=== PATIENT | male | born 1960 | race Caucasian/White ===

== ENCOUNTER 2019-02-04 09:30 | Outpatient (CLI) | payer BC ==
[~2019-02-04] VITALS: Ht 170.2 cm; Wt 84.4 kg
[2019-02-04] MEDS ORDERED: RANI150T46 PO (09:37)
[2019-02-04] MEDS ORDERED: PRAV20TA3 PO (09:37)
== END 2019-02-04 09:38 | disposition home or self-care (01) ==
LOC: PREOP 09:30
PROVIDERS: ATTEND Internal Medicine
DX: Z01.818 Encounter for other preprocedural examination (principal)

== ENCOUNTER 2019-02-07 08:28 | Day surgery (SDC) | payer BC, OTHER ==
--- NOTE | 2019-01-31 13:35 | HISTORY AND PHYSICAL ---
DATE OF SERVICE: PANENDOSCOPY HISTORY AND PHYSICAL DATE OF ADMISSION: 02/07/2019. HISTORY OF PRESENT ILLNESS: The patient is a 59-year-old white male referred by Dr. Chatman for screening colonoscopy and diagnostic EGD. He reports he has been having intermittent dysphagia to solids for the past several months. It probably dates back several years, but worse over the past several months. He reports whenever he swallows, he develops rather sharp right upper quadrant abdominal pain, during the act of swallowing, it subsides usually within a few seconds to a minute. This happens with solids or liquids. He will have occasional dysphagia to solids. He did undergo EGD evaluation for Dr. Almeida in 2009. He reported symptoms were better on Nexium. His electronic medical record was reviewed and it was noted that there were increased eosinophils on his esophageal biopsy raising the possibility of eosinophilic esophagitis. He denies weight loss. Denies abdominal pain elsewhere and has noted no melena or bright red blood per rectum. MEDICATIONS ON ADMISSION: Zantac 150 mg b.i.d., pravastatin 20 mg daily and he takes beet juice extract one time daily. PAST MEDICAL HISTORY: Significant for hyperlipidemia with no known history for vascular disease. FAMILY HISTORY: Family history is pertinent for colon cancer. His father was diagnosed at the age of 62. He several years later, felt to be secondary to emphysema. Mother is living, has hyperlipidemia and dementia and in her late 70s. 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 He also chewed tobacco, but quit in 2008 and he also uses chewing tobacco, but quit in 2008. REVIEW OF SYSTEMS: CONSTITUTIONAL: The patient denies chills, fever or fatigue. CARDIOVASCULAR: The patient denies chest discomfort, syncope, presyncope or dyspnea on exertion. RESPIRATORY: The patient denies cough or wheezing and denies orthopnea, PND or pedal edema. SURGICAL HISTORY: Pertinent for an appendectomy in 1999 and a tonsillectomy in 1967. PHYSICAL EXAMINATION: GENERAL: Reveals a well-appearing white male in no acute distress. VITAL SIGNS: Blood pressure 140/86, weight 186.2 pounds, height 5 feet 8 inches tall. HEENT: Oral cavity reveals Mallampati class 2 pharyngeal configuration without exudate or erythema. NECK: Revealed no JVD, adenopathy or bruits. CHEST: Clear to auscultation. CARDIOVASCULAR: Revealed a regular rate and rhythm without murmur, S3 or S4. ABDOMEN: Soft, supple without mass, organomegaly or tenderness. EXTREMITIES: Reveal no cyanosis, clubbing or edema. ASSESSMENT: The patient was set up for screening colonoscopy, deemed to be of higher than average risk considering his father was diagnosed with colon cancer at the age of 62. He is also being set up for EGD for diagnostic purposes due to dysphagia. We will be repeating esophageal biopsies looking for eosinophils as based on my review of his previous histopathology report, eosinophilic esophagitis is in the differential diagnosis. I thank you for the referral of this pleasant gentleman. Job ID: [id number] DocumentID: [id number] Dictated Date: 01/31/2019 13:00:21 Supervisor [employer] Date: 01/31/2019 13:35:00 Dictated By: KARLEY TRINIDAD MD [facility]
[~2019-02-07] VITALS: Ht 170.2 cm; Wt 84.4 kg
[~2019-02-07 08:28] MED LIST: D5 LR IV SOLUTION 1,000 ML IV ONE; PRAV20TA3 PO; RANI150T46 PO
[2019-02-07] MEDS ORDERED: D5 LR IV SOLUTION 1,000 ML IV STA (08:59)
[2019-02-07 09:00] VITALS: BP 144/91
[2019-02-07] MEDS ORDERED: MIDAZOLAM 2 MG/2 ML (VERSED) VIAL IVP ONE (09:00)
[2019-02-07] MEDS ORDERED: LIDOCAINE JELLY 2% 6 ML SYRINGE MM PRN (09:00)
[2019-02-07] MEDS ORDERED: HURRICAINE EXT TUBE (BENZOCAINE) XX PRN (09:00)
[2019-02-07] MEDS ORDERED: fentaNYL INJECTION 100 MCG/2 ML AMP IVP ONE (09:00)
--- NOTE | 2019-02-07 09:11 | Pre-Op Note & Conscious Sedat ---
Pre-Operative Progress Note H&P Reviewed The H&P was reviewed, patient examined and no changes noted. Date H&P Reviewed: Feb 07, 2019 Time H&P Reviewed: 09:11 Conscious Sedation Pre-Proced ASA Score 2 For ASA 3 and 4: Consider anesthesia and medical clearance. Also, for patients with a history of failed moderate sedation consider anesthesia. Airway Lungs Heart ASA score ASA 1: a normal healthy patient ASA 2: a patient with a mild systemic disease (mid diabetes, controlled hypertension, obesity ASA 3: a patient with a severe systemic disease that limits activity (angina, COPD, prior Myocardial infarction) ASA 4: a patient with an incapacitating disease that is a constant threat to life (CHF, renal failure) ASA 5: a moribund patient not expected to survive 24 hrs. (ruptured aneurysm) ASA 6: a declared brain- patient whose organs are being harvested. For emergent operations, add the letter E after the classification Mallampati Classification Grade 2 Sedation Plan Analgesia, Amnesia, Plan communicated to team members, Discussed options with patient/fam, Discussed risks with patient/fam The patient is an appropriate candidate to undergo the planned procedure, sedation, and anesthesia. The patient immediately re-assessed prior to indication. KARLEY TRINIDAD MD Feb 07, 2019 09:11
[2019-02-07] MEDS ORDERED: LIDOCAINE JELLY 2% 6 ML SYRINGE ONE (09:45)
[2019-02-07] MEDS ORDERED: fentaNYL INJECTION 100 MCG/2 ML AMP ONE (09:46)
[2019-02-07] MEDS ORDERED: MIDAZOLAM 2 MG/2 ML (VERSED) VIAL ONE ×2 (09:46)
[2019-02-07 10:55] VITALS: BP 131/85
[2019-02-07 11:25] VITALS: BP 155/92
[2019-02-07 11:45] VITALS: BP 155/92
--- NOTE | 2019-02-07 15:18 | OPERATIVE REPORT ---
DATE OF SERVICE: [facility] SUMMARY Colonoscopy is done for screening purposes and EGD was done for diagnostic purposes. History of right upper quadrant pain and dysphagia. The patient was placed in left lateral decubitus position. Prior to undergoing colonoscopy, digital rectal evaluation was performed. Anal sphincter tone was normal and the perianal reflexes were intact. Prostate was unremarkable to digital inspection. No other abnormalities are noted on additional inspection of the anal canal or distal rectal vault. The colonoscope was then inserted into the rectum and under direct visualization, advanced to the cecum. The cecum was identified by identification of the ileocecal valve, cecal strap and appendiceal orifice. Photographic documentation was obtained. Careful inspection was made as the colonoscope was withdrawn. The quality of the prep was good. FINDINGS: There is no evidence for internal or external hemorrhoids. A diminutive hyperplastic appearing polyp was noted at the hepatic flexure, was biopsied and ablated and submitted for histopathology. The sigmoid colon, descending colon, splenic flexure, transverse colon, ascending colon and cecum were unremarkable. ASSESSMENT: One diminutive polyp was removed from the hepatic flexure. This was an otherwise normal colonoscopy to the cecum. I would advocate consideration for repeat screening colonoscopy in 5 years considering family history for colon cancer. We then proceeded with EGD evaluation. The endoscope was inserted in the oral cavity and under direct visualization, the esophagus was intubated. The endoscope was passed down the esophagus into the stomach and second portion of the duodenum. A careful inspection was made as the endoscope was withdrawn. The patient tolerated the procedure well. FINDINGS: The posterior pharynx, arytenoid aperture, true and false vocal folds were unremarkable with visual inspection as well as the epiglottis. Proximal and mid esophagus were normal. A small hiatal hernia was present. Erythema is noted at the Z line without evidence for ulceration. A biopsy was obtained from the GE junction and another biopsy was obtained from the distal esophagus considering dysphagia without evidence for mechanical obstruction. This was fully evaluated for underlying eosinophilic esophagitis. The cardia, fundus, antrum, pylorus, pyloric channel, duodenal bulb and second portion of duodenum were unremarkable on visual inspection. ASSESSMENT: A small hiatal hernia is present with erythema noted, but without evidence for erosive esophagitis. On review, this patient's EGD performed by Dr. Almeida several years ago was noted that there was a mild increase in eosinophils on the esophageal biopsy raising the possibility of eosinophilic esophagitis. I repeated biopsy of the distal esophagus as well as the GE junction. For now, we will have the patient continue b.i.d. Zantac; however, if there is again noted increased number of eosinophils, would advocate switching to proton pump inhibitor therapy and if dysphagia were progressing, would advocate trial of gluten free diet and lactose free diet. Thank you for the referral of this pleasant gentleman. Job ID: [id number] DocumentID: [id number] Dictated Date: 02/07/2019 11:10:54 Quality Coordinator Date: 02/07/2019 15:16:58 Dictated By: KARLEY TRINIDAD MD
--- OUTSIDE RECORDS SUMMARY | 2019-02-07 18:51 | XMS REPORT | CCD ---
Author Author Ayde Chatman MD, [facility] Address [address] [place] [address] Phone Care Team Providers Care Lead Military Analyst Name Role Phone PP Unavailable CCM Unavailable Summary Purpose Interface Exchange Insurance Providers Payer name Policy type / Coverage type Covered constitution party ID Effective Begin Date Effective End Date [employer]ign[employer] health and Life Insurance Commercial Insurance [id number] Unknown Unknown Family history Father Diagnosis Age At Onset Emphysema Unknown Colon cancer Unknown Mother Diagnosis Age At Onset Dementia Unknown Hyperlipidemia Unknown Social History Social History Element Codes Description Effective Dates Marital status Unknown Kavita 01/16/2019 Number of children Unknown 4 01/16/2019 Employment Unknown 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 01/16/[address]: 5328987 Quit less than 10 years ago quit chewing 200801/16/2019 Alcohol history Unknown occasionally drinks alcohol 1 beer 01/16/2019 Allergies, Adverse Reactions, Alerts Substance Reaction Codes Entered Date Inactivated Date Status * NO KNOWN DRUG ALLERGIES Unknown 01/16/2019 No Inactive Date Active Past Medical History Illness Codes Condition Status Onset Date Resolved Date Elevated blood-pressure reading, without diagnosis of hypertension ICD-9: 796.2 ICD-10: R03.0 Active 01/16/2019 Unknown Encounter for general adult medical examination with abnormal findings ICD-9: V70.0 ICD-10: Z00.01 Active 01/16/2019 Unknown Encounter for general adult medical examination without abnormal findings ICD-9: V70.0 ICD-10: Z00.00 Active 01/16/2019 Unknown Gastro-esophageal reflux disease without esophagitis ICD-9: 530.81 ICD-10: K21.9 Active 01/16/2019 Unknown Problems Condition Codes Effective Dates Condition Status Elevated blood-pressure reading, without diagnosis of hypertension ICD-9: 796.2 ICD-10: R03.0 01/16/2019 Active Encounter for general adult medical examination with abnormal findings ICD-9: V70.0 ICD-10: Z00.01 01/16/2019 Active Encounter for general adult medical examination without abnormal findings ICD-9: V70.0 ICD-10: Z00.00 01/16/2019 Active Gastro-esophageal reflux disease without esophagitis ICD-9: 530.81 ICD-10: K21.9 01/16/2019 Active Medications Medication Codes Instructions Start Date Stop Date Status Fill Instructions pravastatin 20 mg tablet RxNorm: 465196 1 Tablet(s) PO daily 01/21/2019 05/20/2019 Active pravastatin 20 mg tablet RxNorm: 028100 1 Tablet(s) PO daily 01/21/2019 2019 Inactive ranitidine 150 mg tablet RxNorm: 538132 1 Tablet(s) PO BID 01/16/2019 08/13/2019 Active Medication Administered No Medication Administered data Immunizations No Immunization data Assessments Condition Codes Effective Dates Elevated blood-pressure reading, without diagnosis of hypertension ICD-10: R03.0 ICD-9: 796.2 01/16/2019 Gastro-esophageal reflux disease without esophagitis ICD-10: K21.9 ICD-9: 530.81 01/16/2019 Encounter for general adult medical examination with abnormal findings ICD-10: Z00.01 ICD-9: V70.0 01/16/2019 Reason For Visit Reason For Visit Effective Dates Notes abdominal pain 01/16/2019 Results Observation Observation Code Item Item Code Result Date Tsh Ord6 TSH (3rd IS) 2.80 uIU/mL 01/16/2019 Lipid Ord30 CHOL 218 mg/dL 01/16/2019 Lipid Ord30 HDL 43.0 mg/dl 01/16/2019 Lipid Ord30 TRIG 250 mg/dL 01/16/2019 Lipid Ord30 LDL 125 mg/dL 01/16/2019 Lipid Ord30 C/HDL 5.1 Ratio 01/16/2019 Cbc With Differential Ord2 WBC 5.94 K/ul 01/16/2019 Cbc With Differential Ord2 RBC 5.30 M/ul 01/16/2019 Cbc With Differential Ord2 HGB 15.7 g/dl 01/16/2019 Cbc With Differential Ord2 Neut% 55.2 % 01/16/2019 Cbc With Differential Ord2 HCT 47.1 % 01/16/2019 Cbc With Differential Ord2 MCV 88.9 fl 01/16/2019 Cbc With Differential Ord2 Lymph% 30.0 % 01/16/2019 Cbc With Differential Ord2 MCH 29.6 pg 01/16/2019 Cbc With Differential Ord2 Winkler% 9.9 % 01/16/2019 Cbc With Differential Ord2 MCHC 33.3 pg 01/16/2019 Cbc With Differential Ord2 Eos% 4.2 % 01/16/2019 Cbc With Differential Ord2 PLT 214 K/ul 01/16/2019 Cbc With Differential Ord2 Baso% 0.7 % 01/16/2019 Cbc With Differential Ord2 RDW 12.6 % 01/16/2019 Cbc With Differential Ord2 Neut ABS# 3.28 K/ul 01/16/2019 Cbc With Differential Ord2 Lymph ABS# 1.78 K/ul 01/16/2019 Cbc With Differential Ord2 Winkler ABS# 0.6 K/ul 01/16/2019 Cbc With Differential Ord2 Eos ABS# 0.3 K/ul 01/16/2019 Cbc With Differential Ord2 Baso ABS# 0.0 K/ul 01/16/2019 Comp Metabolic Kpv329 NA 139 mEq/L 01/16/2019 Comp Metabolic Mdp255 K 4.3 mEq/L 01/16/2019 Comp Metabolic Mcl823 CL 102 mEq/L 01/16/2019 Comp Metabolic Emb286 CO2 28.0 mEq/L 01/16/2019 Comp Metabolic Fis606 ANION GAP 13 01/16/2019 Comp Metabolic Nkp476 GLUCOSE 93 mg/dL 01/16/2019 Comp Metabolic Pvk941 Creat 1.0 mg/dL 01/16/2019 Comp Metabolic Vml052 eGFR 78 ml/min/1.73m2 01/16/2019 Comp Metabolic Hmg119 BUN 21 mg/dL 01/16/2019 Comp Metabolic Unj797 B/C Ratio 20.2 Ratio 01/16/2019 Comp Metabolic Dui178 CALCIUM 9.7 mg/dL 01/16/2019 Comp Metabolic Zfp664 ALK PHOS 32 U/L 01/16/2019 Comp Metabolic Qmz994 AST(SGOT) 21 U/L 01/16/2019 Comp Metabolic Mgq080 ALT(SGPT) 35 U/L 01/16/2019 Comp Metabolic Eqs280 BILI T 0.6 mg/dL 01/16/2019 Comp Metabolic Ciw194 ALBUMIN 4.5 g/dL 01/16/2019 Comp Metabolic Lur679 TPRO 6.9 g/dL 01/16/2019 Comp Metabolic Uat857 GLOB 2.4 g/dL 01/16/2019 Comp Metabolic Hqq690 A/G Ratio 1.9 Ratio 01/16/2019 Comp Metabolic Ifo197 Osmo 280 mOsmo 01/16/2019 Total Psa Ord10 PSA 1.57 ng/mL 01/16/2019 Review of Systems System Result Effective Dates Constitutional No recent illness 01/16/2019 Constitutional No chills 01/16/2019 Constitutional No fatigue 01/16/2019 Constitutional No fever 01/16/2019 Constitutional No insomnia 01/16/2019 Constitutional No malaise 01/16/2019 Eyes No vision change 01/16/2019 Ears/Nose/Throat/Neck No dental pain 01/16/2019 Ears/Nose/Throat/Neck No dizziness 01/16/2019 Ears/Nose/Throat/Neck No dysphagia 01/16/2019 Ears/Nose/Throat/Neck No headache 01/16/2019 Ears/Nose/Throat/Neck No hearing loss 01/16/2019 Ears/Nose/Throat/Neck No nasal allergies 01/16/2019 Ears/Nose/Throat/Neck No sore throat 01/16/2019 Ears/Nose/Throat/Neck No postnasal drip 01/16/2019 Ears/Nose/Throat/Neck No sinus congestion 01/16/2019 Cardiovascular No chest pain/pressure 01/16/2019 Cardiovascular No dyspnea 01/16/2019 Cardiovascular No edema 01/16/2019 Cardiovascular No exercise intolerance 01/16/2019 Cardiovascular No fatigue 01/16/2019 Cardiovascular No near-syncope/dizziness 01/16/2019 Respiratory No chest tightness 01/16/2019 Respiratory No cough 01/16/2019 Respiratory No dyspnea 01/16/2019 Respiratory No pedal edema 01/16/2019 Gastrointestinal abdominal pain 01/16/2019 Gastrointestinal No constipation 01/16/2019 Gastrointestinal No diarrhea 01/16/2019 Gastrointestinal No gastroesophageal reflux 01/16/2019 Gastrointestinal No nausea 01/16/2019 Gastrointestinal No vomiting 01/16/2019 Genitourinary/Nephrology No dysuria 01/16/2019 Genitourinary/Nephrology No nocturia 01/16/2019 Genitourinary/Nephrology No urinary incontinence 01/16/2019 Musculoskeletal No stiffness 01/16/2019 Musculoskeletal No swelling 01/16/2019 Musculoskeletal No muscle weakness 01/16/2019 Musculoskeletal No myalgias 01/16/2019 Dermatologic No rash 01/16/2019 Dermatologic No sores 01/16/2019 Neurologic No dizziness 01/16/2019 Neurologic No headache 01/16/2019 Neurologic No neck pain 01/16/2019 Neurologic No syncope 01/16/2019 Psychiatric No anxiety 01/16/2019 Psychiatric No depression 01/16/2019 Physical Exam Exam Name System Name Item Name Status Result Effective Dates Notes Full Exam - General 1994 Constitutional general appearance Development: well developed 01/16/2019 None Full Exam - General 1994 Constitutional general appearance Development: appears stated age 0601/16/2019 None Full Exam - General 1994 Constitutional general appearance Hygiene/Attention to Grooming: good hygiene 01/16/2019 None Full Exam - General 1994 Eyes conjunctiva/eyelids Overall: conjunctiva clear 01/16/2019 None Full Exam - General 1994 Eyes conjunctiva/eyelids Overall: cornea clear 01/16/2019 None Full Exam - General 1994 Eyes conjunctiva/eyelids Overall: eyelids normal 01/16/2019 None Full Exam - General 1994 Eyes pupils and irises Overall: pupils equal, round, reactive to light and accomodation 01/16/2019 None Full Exam - General 1994 Ears/Nose/Throat otoscopic exam Overall: external auditory canals clear 01/16/2019 None Full Exam - General 1994 Ears/Nose/Throat otoscopic exam Overall: tympanic membranes clear 01/16/2019 None Full Exam - General 1994 Ears/Nose/Throat lips/teeth/gingiva Overall: benign lips 01/16/2019 None Full Exam - General 1994 Ears/Nose/Throat lips/teeth/gingiva Overall: normal dentition 01/16/2019 None Full Exam - General 1994 Ears/Nose/Throat oral cavity/pharynx/larynx Overall: oral mucosa clear 01/16/2019 None Full Exam - General 1994 Ears/Nose/Throat oral cavity/pharynx/larynx Overall: oropharyngeal mucosa clear 01/16/2019 None Full Exam - General 1994 Ears/Nose/Throat oral cavity/pharynx/larynx Overall: hypopharynx benign 01/16/2019 None Full Exam - General 1994 Ears/Nose/Throat oral cavity/pharynx/larynx Overall: no masses 01/16/2019 None Full Exam - General 1994 Respiratory auscultation Overall: breath sounds clear bilaterally 01/16/2019 None Full Exam - General 1994 Respiratory respiratory effort/rhythm Overall: no retractions 01/16/2019 None Full Exam - General 1994 Respiratory respiratory effort/rhythm Overall: normal rate 01/16/2019 None Full Exam - General 1994 Cardiovascular extremities Overall: no clubbing 01/16/2019 None Full Exam - General 1994 Cardiovascular auscultation of heart Overall: regular rate 01/16/2019 None Full Exam - General 1994 Cardiovascular auscultation of heart Overall: normal heart sounds 01/16/2019 None Full Exam - General 1994 Abdomen abdominal exam Overall: normal bowel sounds 01/16/2019 None Full Exam - General 1994 Lymphatic neck nodes Overall: anterior cervical chain benign 01/16/2019 None Full Exam - General 1994 Lymphatic neck nodes Overall: posterior cervical chain benign 01/16/2019 None Full Exam - General 1994 Musculoskeletal spine, ribs and pelvis Overall: spine benign 01/16/2019 None Full Exam - General 1994 Musculoskeletal spine, ribs and pelvis Overall: sacroiliac joint benign 01/16/2019 None Full Exam - General 1994 Musculoskeletal spine, ribs and pelvis Overall: good posture 01/16/2019 None Full Exam - General 1994 Musculoskeletal head and neck Overall: head atraumatic 01/16/2019 None Full Exam - General 1994 Musculoskeletal head and neck Overall: cervical spine benign 01/16/2019 None Full Exam - General 1994 Integument inspection of skin Overall: few scattered moles, no gross abnormalities 01/16/2019 None Full Exam - General 1994 Neurologic deep tendon reflexes Overall: deep tendon reflexes intact 01/16/2019 None Full Exam - General 1994 Neurologic cranial nerves Overall: crainial nerves 2 - 12 grossly intact 01/16/2019 None Full Exam - General 1994 Psychiatric orientation/consciousness Overall: oriented to person, place and time 01/16/2019 None Full Exam - General 1994 Psychiatric mood and affect Overall: normal mood and affect 01/16/2019 None Full Exam - General 1994 Abdomen abdominal exam Upper quadrant: tender to palpation 01/16/2019 very slight ttp lateral right upper abdomen Full Exam - General 1994 Abdomen abdominal exam Upper quadrant: non-tender to palpation 01/16/2019 None Full Exam - General 1994 Abdomen abdominal exam Lower quadrant: non-tender to palpation 01/16/2019 None Procedures No Procedures data Vital Signs Date Vital 01/16/2019 Blood Pressure 1: 150/82 Code: 8480-6 BMI: 29.7 Code: 89759-8 Heart Rate 1: 89 bpm Height: 5'6" SpO2: 95% Weight: 184 lbs Functional Status No Functional Status data History of Present Illness Symptom Name Status Result Effective Date Notes Location in the [facility] 01/16/2019 None Location in the [facility] 01/16/2019 None Quality dull 01/16/2019 None Quality stabbing 01/16/2019 None Onset and Resolution ongoing 01/16/2019 None Onset of Symptom 1 years ago 01/16/2019 None Frequency of Episodes weekly 01/16/2019 None Triggers meals 01/16/2019 None Pertinent Findings heartburn 01/16/2019 intermittent Pertinent Findings Denies back pain 01/16/2019 None Pertinent Findings Denies dysphagia 01/16/2019 hx of: had EGD with Dr. Almeida and given nexium and this got better Advance Directives No Advance Directive data Encounters Encounter Performer Location Codes Date (76044) PREV VISIT NEW AGE 40-64 Diagnosis: Encounter for general adult medical examination with abnormal findings[ICD10: Z00.01] Diagnosis: Elevated blood-pressure reading, without diagnosis of hypertension[ICD10: R03.0] [facility] CPT-4: 50561 01/16/2019 Plan of Care Planned Activity Notes Codes Status Date Visit Plan: Well Adult - pt was counseled about diet, exercise, and encouraged to follow a heart healthy diet and increase activity level. The patient was instructed to RTC yearly for well adult exams and PRN for acute illnesses. The pt was also instructed to have yearly labs for check of cholesterol, thyroid, chem panel, CBC, and renal functioning. Elevated Blood Pressure - without diagnosis of hypertension - pt has been instructed to check blood pressure as an outpatient, record blood pressure and heart rate and report to the clinic in two weeks on the findings. Pt advised to cut back on added salt in the diet. Esophageal Reflux - the patient has been counseled against excessive intake of caffeine, spicy foods, peppermint, and cinnamon - all of which can exacerbate esophageal reflux. The patient is to take medications as prescribed and call the office if the symptoms are not improving. rx for zantac to be taken bid AND referral to Dr. Amaro for EGD/colonoscopy - if possible he would like to see if he can have his scope on a sunday or sunday Pt has family hx of colon cancer and he has never had a screening colonoscopy. 01/16/2019 Appointment: Ayde Chatman WPtel: [address] [place], [place] [id number] New Patient 01/16/2019 Patient Education: Patient Medication Summary Completed 01/16/2019 Instructions Comment . Well Adult - pt was counseled about diet, exercise, and encouraged to follow a heart healthy diet and increase activity level. The patient was instructed to RTC yearly for well adult exams and PRN for acute illnesses. The pt was also instructed to have yearly labs for check of cholesterol, thyroid, chem panel, CBC, and renal functioning. Elevated Blood Pressure - without diagnosis of hypertension - pt has been instructed to check blood pressure as an outpatient, record blood pressure and heart rate and report to the clinic in two weeks on the findings. Pt advised to cut back on added salt in the diet. Esophageal Reflux - the patient has been counseled against excessive intake of caffeine, spicy foods, peppermint, and cinnamon - all of which can exacerbate esophageal reflux. The patient is to take medications as prescribed and call the office if the symptoms are not improving. rx for zantac to be taken bid AND referral to Dr. Amaro for EGD/colonoscopy - if possible he would like to see if he can have his scope on a sunday or sunday Pt has family hx of colon cancer and he has never had a screening colonoscopy.
--- OUTSIDE RECORDS SUMMARY | 2019-02-07 18:51 | XMS REPORT | Continuity of Care Document ---
Author Organization Unknown Address Unknown Allergies There is no data. Medications There is no data. Problems There is no data. Procedures There is no data. Results There is no data. Encounters ACCT No. Visit Date/Time Discharge Status Pt. Type Provider Facility Loc./Unit Complaint [id number] 01/15/2019 08:08:05 01/15/2019 23:59:59 CLS Outpatient
--- OUTSIDE RECORDS SUMMARY | 2019-02-07 18:51 | XMS REPORT | CCD ---
Author Author Ayde Chatman MD, [facility] Address [address] [place] [address] Phone Care Team Providers Care T[employer]uler Name Role Phone PP Unavailable CCM Unavailable Summary Purpose Interface Exchange Insurance Providers Payer name Policy type / Coverage type Covered libertarian ID Effective Begin Date Effective End Date [employer] health and Life Insurance Commercial Insurance [id number] Unknown Unknown Family history Father Diagnosis Age At Onset Emphysema Unknown Colon cancer Unknown Mother Diagnosis Age At Onset Dementia Unknown Hyperlipidemia Unknown Social History Social History Element Codes Description Effective Dates Marital status Unknown Kavita 01/16/2019 Number of children Unknown 4 01/16/2019 Employment Unknown 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 01/16/[address]: 1612575 Quit less than 10 years ago quit [...] Start Date Stop Date Status Fill Instructions ranitidine 150 mg tablet RxNorm: 764769 1 Tablet(s) PO BID 01/16/2019 08/13/2019 Active [...] 29.6 pg 01/16/2019 Cbc With Differential Ord2 [place]% 9.9 % 01/16/2019 Cbc With Differential Ord2 [...] 1.78 K/ul 01/16/2019 Cbc With Differential Ord2 [place] ABS# 0.6 K/ul 01/16/2019 Cbc With Differential Ord2 Eos ABS# 0.3 K/ul 01/16/2019 Cbc With Differential Ord2 Baso ABS# 0.0 K/ul 01/16/2019 Comp Metabolic Pel240 NA 139 mEq/L 01/16/2019 Comp Metabolic Swl899 K 4.3 mEq/L 01/16/2019 Comp Metabolic Sko392 CL 102 mEq/L 01/16/2019 Comp Metabolic Ell246 CO2 28.0 mEq/L 01/16/2019 Comp Metabolic Xon084 ANION GAP 13 01/16/2019 Comp Metabolic Rip561 GLUCOSE 93 mg/dL 01/16/2019 Comp Metabolic Wje665 Creat 1.0 mg/dL 01/16/2019 Comp Metabolic Mhz449 eGFR 78 ml/min/1.73m2 01/16/2019 Comp Metabolic Suh883 BUN 21 mg/dL 01/16/2019 Comp Metabolic Qmg773 B/C Ratio 20.2 Ratio 01/16/2019 Comp Metabolic Ihn716 CALCIUM 9.7 mg/dL 01/16/2019 Comp Metabolic Uyq331 ALK PHOS 32 U/L 01/16/2019 Comp Metabolic Crf933 AST(SGOT) 21 U/L 01/16/2019 Comp Metabolic Dqf167 ALT(SGPT) 35 U/L 01/16/2019 Comp Metabolic Uex854 BILI T 0.6 mg/dL 01/16/2019 Comp Metabolic Ihg446 ALBUMIN 4.5 g/dL 01/16/2019 Comp Metabolic Fef575 TPRO 6.9 g/dL 01/16/2019 Comp Metabolic Ntd874 GLOB 2.4 g/dL 01/16/2019 Comp Metabolic Znq588 A/G Ratio 1.9 Ratio 01/16/2019 Comp Metabolic Dhh041 Osmo 280 mOsmo 01/16/2019 Total Psa Ord10 [...] Effective Dates Notes Full Exam - General 1995 Constitutional general appearance Development: well developed 01/16/2019 [...] 1: 150/82 Code: 8480-6 BMI: 29.7 Code: 96100-9 Heart Rate 1: 89 bpm Height: 5'6" SpO2: 95% Weight: 184 lbs Functional Status No Functional Status data History of Present Illness Symptom Name Status Result Effective Date Notes Location in the RUQ 01/16/2019 None Location in the RLQ 01/16/2019 [...] data Encounters Encounter Performer Location Codes Date (93243) PREV VISIT NEW AGE 40-64 Diagnosis: Encounter for general adult medical examination with abnormal findings[ICD10: Z00.01] Diagnosis: Elevated blood-pressure reading, without diagnosis of hypertension[ICD10: R03.0] [facility] CPT-4: 03696 01/16/2019 Plan of Care Planned Activity Notes [...] has never had a screening colonoscopy. 01/16/2019 Patient Education: Patient Medication Summary Completed [...]
== END 2019-02-07 11:45 | disposition home or self-care (01) ==
LOC: ENDO 08:28
PROVIDERS: ATTEND Internal Medicine
DX: Z12.11 Encounter for screening for malignant neoplasm of colon (principal); D12.3 Benign neoplasm of transverse colon; K44.9 Diaphragmatic hernia without obstruction or gangrene; K20.0 Eosinophilic esophagitis; Z80.0 Family history of malignant neoplasm of digestive organs; E78.5 Hyperlipidemia, unspecified; Z79.899 Other long term (current) drug therapy; Z87.891 Personal history of nicotine dependence